=== PATIENT | female | born 1995 | race Caucasian/White ===

== ENCOUNTER → 2017-04-17 | Outpatient (CLI) | payer BC ==
[~2017-04-17] MED LIST: IBUP-1459 PO; ONDA4TAB7 SL
--- NOTE | 2017-04-17 16:00 | DIAGNOSTIC IMAGING REPORT ---
LEG LENGTH STUDY (WHOLE LEG) CLINICAL HISTORY: DISCREPANCY leg length discrepancy COMPARISON STUDY: None FINDINGS: Total leg length on the right is 89.8 cm. Total leg length on the left is 90.6 cm. This is equivalent to an 8 mm discrepancy with the right slightly shorter than that of the left. Femoral length of the right is 50.3 cm. From a length on the left is 50.7 cm. This accounts for 50% of the leg length discrepancy. IMPRESSION: 1. Left leg is longer than that of the right x 8 mm. 2. 50% of this discrepancy, at 4 mm, is in the differential femoral leg length. 3. The remaining leg length discrepancy is in the lower legs with the left 4 mm longer than the right for a total of 8 mm overall The above report was generated using voice recognition software. It may contain grammatical, syntax or spelling errors. Electronically signed by: Cresencio Beltre M.D. 04/17/2017 3:58 PM Dictated Date/Time: 04/17/2017 3:55 PM
== END | disposition home or self-care (01) ==
LOC: C.RADBC 15:38
PROVIDERS: ATTEND Physician Assistant Medical
DX: M21.70 Unequal limb length (acquired), unspecified site (principal)